=== PATIENT | female | born 1950 | race Caucasian/White ===

== ENCOUNTER → 2023-07-26 13:11 | Outpatient (REF) | payer MEDICARE, OTHER, SELFPAY ==
[2023-07-26 13:52] LABS: % Basophils 1.2 % (0-2); % Immature Granulocytes 0.2 % (0-0.5); % Lymphocytes 27.3 % (20.5-51.1); % Monocytes 9.6 % (1.7-9.3); % Neutrophils 58.7 % (42.2-75.2); Absolute Basophils 0.1 10^3/uL (0-0.2); Absolute Eosinophils 0.2 10^3/uL (0-0.7); Absolute Lymphocytes 1.6 10^3/uL (1.2-3.4); Absolute Monocytes 0.6 10^3/uL (0.1-0.6); Absolute Neutrophils 3.5 10^3/uL (1.4-6.5); Hematocrit 43.7 % (37.0-47.0); Hemoglobin 13.6 g/dL (12.0-16.0); Mean Corp Hgb Conc. 31.1 g/dL (33.0-37.0); Mean Corpuscular Hgb 30.2 pg (27.0-31.0); Mean Corpuscular Volume 96.9 fL (81.0-99.0); Mean Platelet Volume 9.9 fL (7.4-10.4); Nucleated Red Blood Cells % 0 %; Platelet Count 209 10^3/uL (130-400); Red Blood Cell Count 4.51 10^6/uL (4.20-5.40); Red Cell Dist. Width 14.1 % (11.5-14.5)
[2023-07-26 13:58] LABS: Blood Urea Nitrogen 19 mg/dl (7-17); Calcium 9.4 mg/dl (8.4-10.2); Carbon Dioxide 27 mmol/L (22-30); Chloride 105 mmol/L (98-107); Glucose 113 mg/dl (70-99); Potassium 4.2 mmol/L (3.5-5.1); Sodium 136 mmol/L (135-145); eGFR > 60.00
[2023-07-26 14:24] LABS: TSH 1.81 uIU/ml (0.47-4.68)
[2023-07-26 14:30] LABS: Glycohemoglobin (HgbA1c) 6.1 % (4.0-5.6)
== END ==
LOC: CLAB 13:11
PROVIDERS: ATTENDING PHYSICIAN Internal Medicine
DX: R53.81 Other malaise (principal); R53.83 Other fatigue; R73.03 Prediabetes
CPT/HCPCS: 36415; 80048; 83036; 84443; 85025

== ENCOUNTER → 2023-09-20 08:12 | Outpatient (REF) | payer MEDICARE, OTHER, SELFPAY ==
[2023-09-20 10:19] LABS: HDL Cholesterol 78 mg/dl; Iron 101 ug/dl (37-170); Total Cholesterol 148 mg/dl (50-199)
[2023-09-20 10:28] LABS: Percent Saturation 30 % (20-50); Total Iron Binding Capacity 336 ug/dl (265-497)
[2023-09-20 10:29] LABS: LDL Cholesterol, Calculated 43 mg/dl; Triglyceride 136 mg/dl (10-149); Very Low Density Lipoprotein 27 mg/dl (0-30)
[2023-09-20 10:41] LABS: Glycohemoglobin (HgbA1c) 6.1 % (4.0-5.6)
[2023-09-20 10:48] LABS: Ferritin 65.4 ng/ml (11.1-264.0)
[2023-09-20 11:02] LABS: Vitamin B12 952 pg/ml (239-931)
== END ==
LOC: REG 08:12
PROVIDERS: ATTENDING PHYSICIAN Physician Assistant
DX: R53.83 Other fatigue (principal); R73.01 Impaired fasting glucose; Z13.220 Encounter for screening for lipoid disorders; E66.09 Other obesity due to excess calories; Z68.32 Body mass index [BMI] 32.0-32.9, adult; R11.10 Vomiting, unspecified; E53.8 Deficiency of other specified B group vitamins
CPT/HCPCS: 36415; 80061; 82607; 82728; 83036; 83540; 83550

== ENCOUNTER → 2023-11-06 06:37 | Day surgery (SDC) | payer MEDICARE, OTHER, SELFPAY | LOC: GI 06:37 | PROVIDERS: ATTENDING PHYSICIAN Internal Medicine Gastroenterology | DX: K22.70 Barrett's esophagus without dysplasia (principal); K44.9 Diaphragmatic hernia without obstruction or gangrene; K22.89 Other specified disease of esophagus | CPT/HCPCS: 43239; 88305 ==

== ENCOUNTER → 2023-11-22 08:30 | Outpatient (REF) | payer MEDICARE, OTHER, SELFPAY ==
[2023-11-22 09:35] LABS: Urine Albumin Negative (Neg - Trace); Urine Bilirubin 1+ (Negative); Urine Character Clear (Clear); Urine Color Yellow; Urine Glucose Negative (Negative); Urine Ketone Negative (Negative); Urine Leukocyte 1+ (Negative); Urine Nitrite Negative (Negative); Urine Occult Blood Negative (Negative); Urine Urobilinogen Negative (Neg - 1+)
[2023-11-22 10:56] LABS: Urine Amorphous Seen; Urine Squamous Cell >30 /LPF (Few)
[2023-11-22 10:57] LABS: Urine Red Blood Cell 0-2 /HPF (0-2)
== END ==
LOC: REG 08:30
PROVIDERS: ATTENDING PHYSICIAN Physician Assistant
DX: R30.0 Dysuria (principal)
CPT/HCPCS: 81003; 81015; 87086

== ENCOUNTER 2023-12-18 12:49 | Emergency (ER) | payer MEDICARE, OTHER, SELFPAY ==
[2023-12-18 12:53] VITALS: BP 128/88
[2023-12-18 13:20] LABS: % Basophils 0.7 % (0-2); % Eosinophils 1.2 % (0-6); % Immature Granulocytes 0.4 % (0-0.5); % Lymphocytes 20.7 % (20.5-51.1); % Monocytes 10.5 % (1.7-9.3); % Neutrophils 66.5 % (42.2-75.2); Absolute Basophils 0.1 10^3/uL (0-0.2); Absolute Eosinophils 0.1 10^3/uL (0-0.7); Absolute Lymphocytes 1.4 10^3/uL (1.2-3.4); Absolute Monocytes 0.7 10^3/uL (0.1-0.6); Absolute Neutrophils 4.6 10^3/uL (1.4-6.5); Hematocrit 43.1 % (37.0-47.0); Hemoglobin 14.3 g/dL (12.0-16.0); Mean Corp Hgb Conc. 33.2 g/dL (33.0-37.0); Mean Corpuscular Hgb 30.9 pg (27.0-31.0); Mean Corpuscular Volume 93.1 fL (81.0-99.0); Mean Platelet Volume 8.9 fL (7.4-10.4); Nucleated Red Blood Cells % 0 %; Platelet Count 256 10^3/uL (130-400); Red Blood Cell Count 4.63 10^6/uL (4.20-5.40); Red Cell Dist. Width 14.6 % (11.5-14.5); White Blood Cell Count 6.9 10^3/uL (4.8-10.8)
[2023-12-18 13:35] LABS: ALT (SGPT) 26 U/L (0-35); AST (SGOT) 30 U/L (14-36); Albumin 4.7 g/dl (3.5-5.0); Alkaline Phosphatase 65 U/L (38-126); Blood Urea Nitrogen 20 mg/dl (7-17); Calcium 10.2 mg/dl (8.4-10.2); Carbon Dioxide 29 mmol/L (22-30); Chloride 101 mmol/L (98-107); Glucose 96 mg/dl (70-99); Lipase 104 U/L (23-300); Potassium 4.3 mmol/L (3.5-5.1); Sodium 137 mmol/L (135-145); Total Protein 7.1 g/dl (6.3-8.2); eGFR > 60.00
[2023-12-18] MEDS: OMNIPAQUE 50 ML PO (15:20)
--- NOTE | 2023-12-18 15:40 | ED.GENMED ---
History of Present Illness
General
Chief Complaint: Abdominal Pain
Source: patient
Exam Limitations: none
Time Seen by Provider: 12/18/23 14:49
Nursing documentation reviewed up to this point in time: agreed with
History of Present Illness
History of Present Illness:
73-year-old female with past medical history of previous diverticulitis previous stroke, anxiety depression presenting to the emergency department today with concerns of lower abdominal pain mainly to the right lower quadrant took amoxicillin over
the past 2 days when she presumed there was diverticulitis but has not had any improvement of symptoms. Did have a previous sigmoidectomy in the past. Denies any nausea vomiting fevers.
Past History
Past History
ED Past Medical History: CVA (TIA), GERD, Hypercholesterolemia and Other (Diverticulitis, DVT)
ED Past Surgical History: Appendectomy, Bowel resection and Other (Resection)
Social History
Tobacco: Non-smoker
Alcohol: Occasional (Wine)
Drug: None
Personal:
Living: with family
Employment: Not employed
Family History
Family History: Other (Spouse with similar less severe symptoms)
Review of Systems
Review of Systems
Allergies reviewed?: Yes
All Other Systems: ROS reviewed and negative except as documented in HPI and ROS
Phy Exam
Physical Exam
Physical Exam:
GENERAL: Alert , in no apparent distress
EYE: pupils equal and reactive
NECK: Supple, no significant adenopathy.
ENT: o/p clr, mmm.
CARDIAC: Regular rate and rhythm .
LUNGS: Clear breath sounds bilaterally, no acute respiratory distress, no wheezes/rales/rhonchi
ABDOMEN: Tender to palpation to the right lower quadrant otherwise soft benign abdomen
NEUROLOGICAL: Alert and oriented, no focal neuro deficits
SKIN: Warm and dry, skin intact.
MUSCULOSKELETAL: No edema, well perfused.
PSYCH: Normal and appropriate interaction.
Course
Orders/Labs/Results
Orders:
Orders
12/18/23 12:57
IV Insert/Care/Rem.- Treatment PRN
12/18/23 13:00
Complete Blood Count/With Diff Urgent
Comprehensive Metabolic Panel Urgent
Lipase Urgent
12/18/23 15:15
CT Abd/pel W Iv And Oral Contr Urgent
Comment:
Reason For Exam: rlq pain
0.9% Sodium Chloride 1000 ml [Nss] 1,000 ml IV BOLUS
Iohexol [Omnipaque] See Protocol PO NOW STA
12/18/23 15:46
Urinalysis Reflex To Culture Urgent
Date Specimen was Collected: 12/18/23
Time Specimen was Collected: 15:22
Abnormal Lab Results
12/18/23 12/18/23
13:00 15:46
RDW 14.6 H %
(11.5-14.5)
Absolute Monos (auto) 0.7 H 10^3/uL
(0.1-0.6)
Monocytes % 10.5 H %
(1.7-9.3)
BUN 20 H mg/dl
(7-17)
Urine Ketones Trace A
(Negative)
12/18/23 13:00
12/18/23 13:00
Vital Signs
Initial and Last Documented VS:
Initial Vital Signs
Temp Pulse Resp BP Pulse Ox
98.1 F 78 18 128/88 97
12/18/23 12:53 12/18/23 12:53 12/18/23 12:53 12/18/23 12:53 12/18/23 12:53
Last Documented Vital Signs
Temp Pulse Resp BP Pulse Ox
98.6 F 78 18 120/64 96
12/18/23 19:02 12/18/23 17:52 12/18/23 17:52 12/18/23 19:02 12/18/23 19:02
MDM/Problems Addressed
MDM/Problems Addressed:
73-year-old female presenting to the emergency department today with concerns of abdominal pain mainly to the right lower quadrant over the past few days. Feels similar to previous episodes of diverticulitis. Plan for CT scan for further
assessment. CT without emergent findings labs unremarkable patient vies for close outpatient follow-up and otherwise no emergent findings on workup here. Return precautions given.
*Critical Care Note
Total Time (30-74mins, 75-104mins- exclusive of procedures): Not Applicable
ED Attending Note
-
Portions of this chart may have been created with voice recognition software.� Occasional wrong word or��sound alike� substitutions may have occurred due to the inherent limitations of voice recognition software.
Discharge Plan
Departure
Patient Disposition: Home (Routine Discharge)
Date of Disposition: 12/18/23
Time of Disposition: 19:34
Patient with high blood pressure during this ER visit?: No
Condition: Good
Covid-19: Not Applicable
Discharge Problem:
Abdominal pain
Instructions: Abdominal Pain
Prescriptions:
No Action
cyanocobalamin (vitamin B-12) 100 MCG tablet
1,000 mcg PO DAILY
cholecalciferol (vitamin D3) 1,000 UNITS tablet
2,000 units PO DAILY
Probiotic (with Vitamin D3) 1 EACH tablet,chewable
1 ea PO DAILY
rosuvastatin 20 MG tablet
20 mg PO QPM Qty: 60 0RF
omeprazole 20 mg capsule,delayed release(DR/EC)
20 mg PO DAILY
clopidogrel 75 MG tablet
75 mg PO DAILY
amitriptyline 10 mg Tablet
10 mg PO HS Qty: 10 0RF
prednisone 10 mg tablet
30 mg PO DAILY Qty: 30 0RF
Rx Instructions:
30mg X2 days then 20mg X 3days then 10 mg
cefuroxime axetil 500 mg tablet
500 mg PO BID Qty: 9 0RF
cefdinir 300 mg capsule
300 mg PO BID 10 Days Qty: 20 0RF
Referrals:
Katarzyna Greenwood PA-C [Family Provider] -
Activity Restrictions/Additional Instructions:
You came to the emergency department today with concerns of abdominal pain. Here had a reassuring assessment. Please follow closely with the primary care doctor and GI for any ongoing symptoms. Return to the emergency department any worsening,
new or concerning symptoms.
Interventions
Interventions:
*Risk Screen - Suicide Last Done: 12/18/23 12:53
*General Assessment Last Done: 12/18/23 12:53
*Neglect/Abuse Screening Last Done: 12/18/23 12:53
ED- Fall Risk Assessment Last Done: 12/18/23 17:05
*ED COVID-19 Vaccine History Last Done: 12/18/23 17:05
QM-Nyfqpi-Izaueekkuf Assessment Last Done: 12/18/23 17:04
Discharge Date and Time
Print Language: CROATIAN
[2023-12-18] MEDS: NSS 1000 IV (15:49)
[2023-12-18 15:51] LABS: Urine Albumin Negative (Neg - Trace); Urine Bilirubin Negative (Negative); Urine Character Clear (Clear); Urine Color Yellow; Urine Glucose Negative (Negative); Urine Ketone Trace (Negative); Urine Leukocyte Negative (Negative); Urine Nitrite Negative (Negative); Urine Occult Blood Negative (Negative); Urine Specific Gravity 1.015 (<1.030); Urine Urobilinogen Negative (Neg - 1+)
[2023-12-18 17:52] VITALS: BP 122/74; BMI 30.2
[2023-12-18 19:02] VITALS: BP 120/64
== END 2023-12-18 20:05 | disposition home or self-care (01) ==
LOC: EMR 12:49
PROVIDERS: Physician Assistant; Student in an Organized Health Care Education/Training Program; EMERGENCY PHYSICIAN Student in an Organized Health Care Education/Training Program; FAMILY PHYSICIAN Physician Assistant
DX: R10.31 Right lower quadrant pain (principal); K57.92 Diverticulitis of intestine, part unspecified, without perforation or abscess without bleeding; K21.9 Gastro-esophageal reflux disease without esophagitis; F32.A Depression, unspecified; F41.9 Anxiety disorder, unspecified; I49.9 Cardiac arrhythmia, unspecified; E78.5 Hyperlipidemia, unspecified; I45.10 Unspecified right bundle-branch block; K22.70 Barrett's esophagus without dysplasia; M19.90 Unspecified osteoarthritis, unspecified site; Z98.0 Intestinal bypass and anastomosis status; Z86.718 Personal history of other venous thrombosis and embolism; Z86.73 Personal history of transient ischemic attack (TIA), and cerebral infarction without residual deficits; Z87.440 Personal history of urinary (tract) infections; Z88.2 Allergy status to sulfonamides; Z88.8 Allergy status to other drugs, medicaments and biological substances; Z88.1 Allergy status to other antibiotic agents; Z91.018 Allergy to other foods
CPT/HCPCS: 99285; 96360; 74177; 80053; 81003; 83690; 85025; Q9967

== ENCOUNTER → 2024-01-06 11:57 | Outpatient (REF) | payer MEDICARE, OTHER, SELFPAY | LOC: MRI 3T 11:57 | PROVIDERS: ATTENDING PHYSICIAN Pain Medicine Interventional Pain Medicine; FAMILY PHYSICIAN Physician Assistant | DX: M54.16 Radiculopathy, lumbar region (principal) | CPT/HCPCS: 72148 ==

== ENCOUNTER → 2024-02-05 10:30 | Outpatient (REF) | payer MEDICARE, OTHER, SELFPAY | LOC: WDC 10:30 | PROVIDERS: ATTENDING PHYSICIAN Physician Assistant | DX: Z12.31 Encounter for screening mammogram for malignant neoplasm of breast (principal) | CPT/HCPCS: 77063; 77067 ==

== ENCOUNTER → 2024-03-09 09:05 | Outpatient (REF) | payer MEDICARE, OTHER, SELFPAY | LOC: REG 09:05 | PROVIDERS: ATTENDING PHYSICIAN Urology; FAMILY PHYSICIAN Physician Assistant | DX: N30.10 Interstitial cystitis (chronic) without hematuria (principal) | CPT/HCPCS: 87077; 87086; 87186 ==

== ENCOUNTER → 2024-03-25 14:38 | Outpatient (REF) | payer MEDICARE, OTHER, SELFPAY ==
[2024-03-25 15:35] LABS: Urine Albumin 2+ (Neg - Trace); Urine Bilirubin Negative (Negative); Urine Character Very Cloudy (Clear); Urine Color Yellow; Urine Glucose Negative (Negative); Urine Ketone Negative (Negative); Urine Leukocyte 2+ (Negative); Urine Nitrite Positive (Negative); Urine Occult Blood 3+ (Negative); Urine Specific Gravity 1.015 (<1.030); Urine Urobilinogen Negative (Neg - 1+)
[2024-03-25 15:48] LABS: Urine Bacteria Many (Negative); Urine Red Blood Cell 0-2 /HPF (0-2); Urine White Cell 30-40 /HPF (0-5)
== END ==
LOC: REG 14:38
PROVIDERS: ATTENDING PHYSICIAN Urology; FAMILY PHYSICIAN Physician Assistant
DX: N39.0 Urinary tract infection, site not specified (principal)
CPT/HCPCS: 81003; 81015; 87077; 87086; 87186

== ENCOUNTER 2024-03-25 20:14 | Emergency (ER) | payer MEDICARE, OTHER, SELFPAY ==
[2024-03-25 20:21] VITALS: BP 164/105
[2024-03-25 20:42] LABS: % Basophils 0.6 % (0-2); % Immature Granulocytes 0.3 % (0-0.5); % Lymphocytes 19.3 % (20.5-51.1); % Monocytes 8.1 % (1.7-9.3); % Neutrophils 70.7 % (42.2-75.2); Absolute Basophils 0.1 10^3/uL (0-0.2); Absolute Eosinophils 0.1 10^3/uL (0-0.7); Absolute Monocytes 0.9 10^3/uL (0.1-0.6); Absolute Neutrophils 7.5 10^3/uL (1.4-6.5); Hematocrit 42.8 % (37.0-47.0); Mean Corp Hgb Conc. 32.7 g/dL (33.0-37.0); Mean Corpuscular Hgb 32.1 pg (27.0-31.0); Mean Corpuscular Volume 98.2 fL (81.0-99.0); Mean Platelet Volume 9.2 fL (7.4-10.4); Nucleated Red Blood Cells % 0 %; Platelet Count 223 10^3/uL (130-400); Red Blood Cell Count 4.36 10^6/uL (4.20-5.40); Red Cell Dist. Width 14.2 % (11.5-14.5); White Blood Cell Count 10.6 10^3/uL (4.8-10.8)
[2024-03-25 20:58] LABS: ALT (SGPT) 40 U/L (0-35); AST (SGOT) 33 U/L (14-36); Albumin 4.5 g/dl (3.5-5.0); Alkaline Phosphatase 44 U/L (38-126); Blood Urea Nitrogen 20 mg/dl (7-17); Calcium 9.2 mg/dl (8.4-10.2); Carbon Dioxide 28 mmol/L (22-30); Chloride 98 mmol/L (98-107); Glucose 125 mg/dl (70-99); Sodium 136 mmol/L (135-145); Total Bilirubin 0.5 mg/dl (0.2-1.3); Total Protein 6.8 g/dl (6.3-8.2); eGFR > 60.00
[2024-03-25] MEDS: TYLENOL 650 MG PO (21:56)
[2024-03-25] MEDS: NSS 1000 IV (21:56)
--- NOTE | 2024-03-25 22:03 | ED.GENMED ---
Addendum entered and electronically signed by Jerry Jackson DO 03/25/24 23:16:
Update Long conversation with patient reviewed her allergies and intolerances, prior culture noted given ceftriaxone here will discharge with Augmentin and Pyridium
Original Note:
History of Present Illness
General
Chief Complaint: Urinary Symptoms
Source: patient, records and spouse
Exam Limitations: none
Time Seen by Provider: 03/25/24 21:06
Nursing documentation reviewed up to this point in time: agreed with
History of Present Illness
History of Present Illness:
73-year-old female history of interstitial cystitis followed by Dr. Oneill urogynecologist presents with fatigue, malaise feeling cold, with urinary frequency and incontinence, finished course of amoxicillin and then Cipro for UTI symptoms started
about 2 to 3 weeks ago had been in [place], states she never really recovered from her UTI, no vomiting no flank pain, she give a urine and outpatient today in the [facility] cultures pending, no stuffy nose no cough, she took her blood pressure
and it was elevated temperature was low so she came to the hospital
Past History
Past History
ED Past Medical History: CVA (TIA), GERD, Hypercholesterolemia and Other (Diverticulitis, DVT)
ED Past Surgical History: Appendectomy, Bowel resection and Other (Resection)
Social History
Tobacco: Non-smoker
Alcohol: Occasional (Wine)
Drug: None
Personal:
Living: with family
Employment: Not employed
Family History
Family History: Other (Spouse with similar less severe symptoms)
Review of Systems
Review of Systems
All Other Systems: Not applicable
Constitutional: Reports fatigue; Denies fever
EENT: Reports no symptoms
Cardiac: Reports no symptoms
ABD/GI: Reports no symptoms
: Reports dysuria, frequency, incontinence and urgency; Denies flank pain
Musculoskeletal: Reports no symptoms
Skin: Reports no symptoms
Neurological: Reports weakness
Endocrine: Reports no symptoms
Hematologic/Lymphatic: Reports no symptoms
Phy Exam
Physical Exam
Physical Exam:
Physical Exam
General: no apparent distress, not acutely ill
Neck: No jaundice
Heart: s1/s2 regular rate and rhythm, no murmur. equal radial pulses.
Lungs: no acute respiratory distress. clear bilaterally
Abdomen: Soft nontender no CVA tender
Neuro: alert and oriented. no focal neurological deficits
Skin: no rash
Psychiatric: well kept. interactive and cooperative
Extremities: no edema.
Course
Orders/Labs/Results
Orders:
Orders
03/25/24 20:29
Complete Blood Count/With Diff Urgent
Comprehensive Metabolic Panel Urgent
03/25/24 21:18
CT Abd/pel Without Iv Or Oral Urgent
Comment:
Reason For Exam: recureent uti
03/25/24 21:19
0.9% Sodium Chloride 1000 ml [Nss] 1,000 ml IV BOLUS
03/25/24 21:48
Morphine Sulfate 2 mg IV NOW STA
03/25/24 21:49
Acetaminophen [Tylenol] 650 mg PO NOW STA
03/25/24 22:02
CefTRIAXone [Rocephin] 1,000 mg IV NOW STA
Abnormal Lab Results
03/25/24
20:29
MCH 32.1 H pg
(27.0-31.0)
MCHC 32.7 L g/dL
(33.0-37.0)
Absolute Neuts (auto) 7.5 H 10^3/uL
(1.4-6.5)
Absolute Monos (auto) 0.9 H 10^3/uL
(0.1-0.6)
Lymphocytes % 19.3 L %
(20.5-51.1)
BUN 20 H mg/dl
(7-17)
Glucose 125 H mg/dl
(70-99)
ALT 40 H U/L
(0-35)
03/25/24 20:29
03/25/24 20:29
Vital Signs
Initial and Last Documented VS:
Initial Vital Signs
Temp Pulse Resp BP Pulse Ox
97.8 F 77 19 164/105 98
03/25/24 20:21 03/25/24 20:21 03/25/24 20:21 03/25/24 20:21 03/25/24 20:21
Last Documented Vital Signs
Temp Pulse Resp BP Pulse Ox
97.8 F 77 19 164/105 98
03/25/24 20:21 03/25/24 20:21 03/25/24 20:21 03/25/24 20:21 03/25/24 20:21
MDM/Problems Addressed
Differential Diagnosis Includes:
UTI pyelonephritis viral syndrome
MDM/Problems Addressed:
Fatigue urinary frequent
Chronic conditions affecting care:
Interstitial cystitis
Acute Exacerbation and/or Progression of Chronic Illness:
Interstitial cystitis
*Radiology
Radiology exam reviewed: radiology read reviewed
*Pulse Oximetry
Patient hypoxic: no
*EKG
Interpreted by ED Provider?: NA
*Architecture Analyst Interpretation
Rate: normal
Interpretation: normal
Heart Rate: 78
Rhythm: sinus
*Critical Care Note
Total Time (30-74mins, 75-104mins- exclusive of procedures): Not Applicable
Data Reviewed
Review of Other/Old Records Reveals: Labs
Source: patient
Update Note
Update Note:
Update patient with vague symptoms outpatient urinalysis noted culture pending to take a dose of Azo, vital signs are stable labs are noted will check CT to rule out obstruction, started on fluids analgesics and antibiotics is unclear why she is not
clearing her urinary tract infection prior most recent urine culture noted
11 PM labs are noted CT report noted
ED Attending Note
-
Portions of this chart may have been created with voice recognition software.� Occasional wrong word or��sound alike� substitutions may have occurred due to the inherent limitations of voice recognition software.
Discharge Plan
Departure
Prescriptions:
No Action
cyanocobalamin (vitamin B-12) 100 MCG tablet
1,000 mcg PO DAILY
cholecalciferol (vitamin D3) 1,000 UNITS tablet
2,000 units PO DAILY
Probiotic (with Vitamin D3) 1 EACH tablet,chewable
1 ea PO DAILY
rosuvastatin 20 MG tablet
20 mg PO QPM Qty: 60 0RF
omeprazole 20 mg capsule,delayed release(DR/EC)
20 mg PO DAILY
clopidogrel 75 MG tablet
75 mg PO DAILY
amitriptyline 10 mg Tablet
10 mg PO HS Qty: 10 0RF
prednisone 10 mg tablet
30 mg PO DAILY Qty: 30 0RF
Rx Instructions:
30mg X2 days then 20mg X 3days then 10 mg
cefuroxime axetil 500 mg tablet
500 mg PO BID Qty: 9 0RF
cefdinir 300 mg capsule
300 mg PO BID 10 Days Qty: 20 0RF
Referrals:
UNKNOWN - PT DOES,NOT KNOW [Unknown Provider] -
Interventions
Interventions:
*Risk Screen - Suicide Last Done: 03/25/24 20:23
*General Assessment Last Done: 03/25/24 20:23
*Neglect/Abuse Screening Last Done: 03/25/24 20:23
*ED COVID-19 Vaccine History Last Done: 03/25/24 20:22
Discharge Date and Time
Print Language: [place]AST [place]
[2024-03-25] MEDS: ROCEPHIN 1000 MG IV (23:06)
[2024-03-25 23:14] VITALS: BP 121/75
--- NOTE | 2024-03-25 23:15 | ED.GENMED ---
History of Present Illness
General
Chief Complaint: Urinary Symptoms
Time Seen by Provider: 03/25/24 21:06
Past History
Past History
ED Past Medical History: CVA (TIA), GERD, Hypercholesterolemia and Other (Diverticulitis, DVT)
ED Past Surgical History: Appendectomy, Bowel resection and Other (Resection)
Social History
Tobacco: Non-smoker
Alcohol: Occasional (Wine)
Drug: None
Personal:
Living: with family
Employment: Not employed
Family History
Family History: Other (Spouse with similar less severe symptoms)
Course
Orders/Labs/Results
Orders:
Orders
03/25/24 20:29
Complete Blood Count/With Diff Urgent
Comprehensive Metabolic Panel Urgent
03/25/24 21:18
CT Abd/pel Without Iv Or Oral Urgent
Comment:
Reason For Exam: recureent uti
03/25/24 21:19
0.9% Sodium Chloride 1000 ml [Nss] 1,000 ml IV BOLUS
03/25/24 21:48
Morphine Sulfate 2 mg IV NOW STA
03/25/24 21:49
Acetaminophen [Tylenol] 650 mg PO NOW STA
03/25/24 22:02
CefTRIAXone [Rocephin] 1,000 mg IV NOW STA
Abnormal Lab Results
03/25/24
20:29
MCH 32.1 H pg
(27.0-31.0)
MCHC 32.7 L g/dL
(33.0-37.0)
Absolute Neuts (auto) 7.5 H 10^3/uL
(1.4-6.5)
Absolute Monos (auto) 0.9 H 10^3/uL
(0.1-0.6)
Lymphocytes % 19.3 L %
(20.5-51.1)
BUN 20 H mg/dl
(7-17)
Glucose 125 H mg/dl
(70-99)
ALT 40 H U/L
(0-35)
03/25/24 20:29
03/25/24 20:29
Vital Signs
Initial and Last Documented VS:
Initial Vital Signs
Temp Pulse Resp BP Pulse Ox
97.8 F 77 19 164/105 98
03/25/24 20:21 03/25/24 20:21 03/25/24 20:21 03/25/24 20:21 03/25/24 20:21
Last Documented Vital Signs
Temp Pulse Resp BP Pulse Ox
97.8 F 77 19 164/105 98
03/25/24 20:21 03/25/24 20:21 03/25/24 20:21 03/25/24 20:21 03/25/24 20:21
Update Note
Update Note:
Update
ED Attending Note
-
Portions of this chart may have been created with voice recognition software.� Occasional wrong word or��sound alike� substitutions may have occurred due to the inherent limitations of voice recognition software.
Discharge Plan
Departure
Prescriptions:
No Action
cyanocobalamin (vitamin B-12) 100 MCG tablet
1,000 mcg PO DAILY
cholecalciferol (vitamin D3) 1,000 UNITS tablet
2,000 units PO DAILY
Probiotic (with Vitamin D3) 1 EACH tablet,chewable
1 ea PO DAILY
rosuvastatin 20 MG tablet
20 mg PO QPM Qty: 60 0RF
omeprazole 20 mg capsule,delayed release(DR/EC)
20 mg PO DAILY
clopidogrel 75 MG tablet
75 mg PO DAILY
amitriptyline 10 mg Tablet
10 mg PO HS Qty: 10 0RF
prednisone 10 mg tablet
30 mg PO DAILY Qty: 30 0RF
Rx Instructions:
30mg X2 days then 20mg X 3days then 10 mg
cefuroxime axetil 500 mg tablet
500 mg PO BID Qty: 9 0RF
cefdinir 300 mg capsule
300 mg PO BID 10 Days Qty: 20 0RF
Referrals:
UNKNOWN - PT DOES,NOT KNOW [Unknown Provider] -
Interventions
Interventions:
*Risk Screen - Suicide Last Done: 03/25/24 20:23
*General Assessment Last Done: 03/25/24 20:23
*Neglect/Abuse Screening Last Done: 03/25/24 20:23
*ED COVID-19 Vaccine History Last Done: 03/25/24 20:22
Discharge Date and Time
Print Language: IRANIAN
[2024-03-25] MEDS: Pyridium 200 MG PO (23:43)
== END 2024-03-26 00:09 | disposition home or self-care (01) ==
LOC: EMR 20:14
PROVIDERS: Emergency Medicine; EMERGENCY PHYSICIAN Emergency Medicine; FAMILY PHYSICIAN Physician Assistant
DX: N30.10 Interstitial cystitis (chronic) without hematuria (principal); E78.00 Pure hypercholesterolemia, unspecified; K21.9 Gastro-esophageal reflux disease without esophagitis; Z86.718 Personal history of other venous thrombosis and embolism; Z86.73 Personal history of transient ischemic attack (TIA), and cerebral infarction without residual deficits; Z90.49 Acquired absence of other specified parts of digestive tract
CPT/HCPCS: 96374; 96375; 96361; 99284; 74176; 80053; 81003; 81015; 85025; 87086

== ENCOUNTER → 2024-05-14 11:27 | Outpatient (REF) | payer MEDICARE, OTHER, SELFPAY ==
[2024-05-14 17:29] LABS: % Basophils 0.8 % (0-2); % Immature Granulocytes 0.3 % (0-0.5); % Lymphocytes 22.3 % (20.5-51.1); % Monocytes 10.9 % (1.7-9.3); % Neutrophils 63.7 % (42.2-75.2); Absolute Basophils 0.1 10^3/uL (0-0.2); Absolute Eosinophils 0.2 10^3/uL (0-0.7); Absolute Lymphocytes 1.7 10^3/uL (1.2-3.4); Absolute Monocytes 0.8 10^3/uL (0.1-0.6); Absolute Neutrophils 4.8 10^3/uL (1.4-6.5); Hematocrit 45.3 % (37.0-47.0); Hemoglobin 14.4 g/dL (12.0-16.0); Mean Corp Hgb Conc. 31.8 g/dL (33.0-37.0); Mean Corpuscular Volume 97.4 fL (81.0-99.0); Mean Platelet Volume 9.6 fL (7.4-10.4); Nucleated Red Blood Cells % 0 %; Platelet Count 235 10^3/uL (130-400); Red Blood Cell Count 4.65 10^6/uL (4.20-5.40); Red Cell Dist. Width 14.1 % (11.5-14.5); White Blood Cell Count 7.5 10^3/uL (4.8-10.8)
[2024-05-14 17:35] LABS: Urine Albumin Trace (Neg - Trace); Urine Bilirubin Negative (Negative); Urine Character Clear (Clear); Urine Color Yellow; Urine Glucose Negative (Negative); Urine Ketone Negative (Negative); Urine Leukocyte 2+ (Negative); Urine Nitrite Negative (Negative); Urine Occult Blood Trace (Negative); Urine Specific Gravity 1.005 (<1.030); Urine Urobilinogen Negative (Neg - 1+)
[2024-05-14 17:45] LABS: ALT (SGPT) 24 U/L (0-35); AST (SGOT) 24 U/L (14-36); Albumin 4.7 g/dl (3.5-5.0); Alkaline Phosphatase 72 U/L (38-126); Blood Urea Nitrogen 18 mg/dl (7-17); Calcium 10.3 mg/dl (8.4-10.2); Carbon Dioxide 30 mmol/L (22-30); Chloride 100 mmol/L (98-107); Glucose 100 mg/dl (70-99); Potassium 4.6 mmol/L (3.5-5.1); Sodium 137 mmol/L (135-145); Total Bilirubin 0.9 mg/dl (0.2-1.3); Total Protein 7.3 g/dl (6.3-8.2); eGFR > 60.00
[2024-05-14 17:46] LABS: Amylase 50 U/L (30-110); Lipase 98 U/L (23-300); Urine Bacteria Many (Negative); Urine Red Blood Cell 0-2 /HPF (0-2); Urine Squamous Cell 16-20 /LPF (Few); Urine White Cell 50-60 /HPF (0-5)
== END ==
LOC: CLAB 11:27
PROVIDERS: ATTENDING PHYSICIAN Physician Assistant
DX: R30.0 Dysuria (principal); R68.89 Other general symptoms and signs; R10.9 Unspecified abdominal pain; R10.33 Periumbilical pain
CPT/HCPCS: 36415; 80053; 81003; 81015; 82150; 83690; 85025; 87077; 87086; 87186

== ENCOUNTER → 2024-06-10 16:34 | Outpatient (REF) | payer MEDICARE, OTHER, SELFPAY ==
[2024-06-10 17:34] LABS: Urine Albumin 2+ (Neg - Trace); Urine Bilirubin Negative (Negative); Urine Character Clear (Clear); Urine Color Yellow; Urine Glucose Negative (Negative); Urine Ketone Negative (Negative); Urine Leukocyte 3+ (Negative); Urine Nitrite Positive (Negative); Urine Occult Blood 2+ (Negative); Urine Urobilinogen Negative (Neg - 1+)
[2024-06-10 17:40] LABS: Urine Bacteria Many (Negative)
[2024-06-10 17:41] LABS: Urine White Cell >100 /HPF (0-5)
== END ==
LOC: REG 16:34
PROVIDERS: ATTENDING PHYSICIAN Nurse Practitioner; FAMILY PHYSICIAN Physician Assistant
DX: N39.0 Urinary tract infection, site not specified (principal)
CPT/HCPCS: 81003; 81015; 87077; 87086; 87186

== ENCOUNTER 2024-06-11 16:07 | Emergency (ER) | payer MEDICARE, OTHER, SELFPAY ==
[2024-06-11 16:09] VITALS: BP 169/92
[2024-06-11 16:46] LABS: % Basophils 0.4 % (0-2); % Eosinophils 1.3 % (0-6); % Immature Granulocytes 0.3 % (0-0.5); % Monocytes 5.3 % (1.7-9.3); % Neutrophils 77.7 % (42.2-75.2); Absolute Eosinophils 0.1 10^3/uL (0-0.7); Absolute Lymphocytes 1.2 10^3/uL (1.2-3.4); Absolute Monocytes 0.4 10^3/uL (0.1-0.6); Absolute Neutrophils 6.2 10^3/uL (1.4-6.5); Hematocrit 42.2 % (37.0-47.0); Hemoglobin 13.9 g/dL (12.0-16.0); Mean Corp Hgb Conc. 32.9 g/dL (33.0-37.0); Mean Corpuscular Hgb 31.7 pg (27.0-31.0); Mean Corpuscular Volume 96.3 fL (81.0-99.0); Mean Platelet Volume 9.3 fL (7.4-10.4); Nucleated Red Blood Cells % 0 %; Platelet Count 230 10^3/uL (130-400); Red Blood Cell Count 4.38 10^6/uL (4.20-5.40); Red Cell Dist. Width 13.5 % (11.5-14.5); White Blood Cell Count 7.9 10^3/uL (4.8-10.8)
[2024-06-11 17:01] LABS: ALT (SGPT) 23 U/L (0-35); AST (SGOT) 26 U/L (14-36); Albumin 4.8 g/dl (3.5-5.0); Alkaline Phosphatase 60 U/L (38-126); Blood Urea Nitrogen 24 mg/dl (7-17); Calcium 9.9 mg/dl (8.4-10.2); Carbon Dioxide 29 mmol/L (22-30); Chloride 101 mmol/L (98-107); Glucose 103 mg/dl (70-99); Potassium 3.8 mmol/L (3.5-5.1); Sodium 139 mmol/L (135-145); Total Bilirubin 0.8 mg/dl (0.2-1.3); eGFR > 60.00
[2024-06-11 17:03] LABS: Creatine Phosphokinase 114 U/L (30-135)
[2024-06-11] MEDS: BENADRYL 25 MG IV (17:49)
[2024-06-11] MEDS: NSS 1000 IV (17:49)
--- NOTE | 2024-06-11 18:33 | ED.GENMED ---
History of Present Illness
General
Chief Complaint: Allergic Reaction
Source: patient
Exam Limitations: none
Time Seen by Provider: 06/11/24 16:56
History of Present Illness
History of Present Illness:
73-year-old female presents with diffuse body aches after taking a dose of Macrobid. She believes she has had an allergic reaction to this medicine in the past and notes similar response this time. She is being treated for UTI. No throat swelling
or difficulty breathing. No rash. No chest pain or shortness of breath
Past History
Past History
ED Past Medical History: CVA (TIA), GERD, Hypercholesterolemia and Other (Diverticulitis, DVT)
ED Past Surgical History: Appendectomy, Bowel resection and Other (Resection)
Social History
Tobacco: Non-smoker
Alcohol: Occasional (Wine)
Drug: None
Personal:
Living: with family
Employment: Not employed
Family History
Family History: Other (Spouse with similar less severe symptoms)
Phy Exam
Physical Exam
Physical Exam:
General: Well-appearing female nontoxic no acute respiratory distress HEENT: Normocephalic atraumatic
Posterior pharynx is patent no stridor no adenopathy
Heart: Regular rate and rhythm no murmurs
Lungs: Clear no wheeze
Course
Orders/Labs/Results
Orders:
Orders
06/11/24 16:24
Complete Blood Count/With Diff Urgent
Comprehensive Metabolic Panel Urgent
Creatine [Creatine Phosphokinase] Urgent
06/11/24 17:34
0.9% Sodium Chloride 1000 ml [Nss] 1,000 ml IV BOLUS
Diphenhydramine [Benadryl] 25 mg IV NOW STA
Abnormal Lab Results
06/11/24
16:24
MCH 31.7 H pg
(27.0-31.0)
MCHC 32.9 L g/dL
(33.0-37.0)
Neutrophils % 77.7 H %
(42.2-75.2)
Lymphocytes % 15.0 L %
(20.5-51.1)
BUN 24 H mg/dl
(7-17)
Glucose 103 H mg/dl
(70-99)
06/11/24 16:24
06/11/24 16:24
Vital Signs
Initial and Last Documented VS:
Initial Vital Signs
Temp Pulse Resp BP Pulse Ox
98.2 F 98 20 169/92 98
06/11/24 16:09 06/11/24 16:09 06/11/24 16:09 06/11/24 16:09 06/11/24 16:09
Last Documented Vital Signs
Temp Pulse Resp BP Pulse Ox
98.2 F 98 20 169/92 98
06/11/24 16:09 06/11/24 16:09 06/11/24 16:09 06/11/24 16:09 06/11/24 18:10
MDM/Problems Addressed
Differential Diagnosis Includes:
Myalgias shortly dorsalis after starting Macrobid for UTI. She has had allergic reaction to Macrobid in the past. No respiratory distress. Labs reviewed
*Critical Care Note
Total Time (30-74mins, 75-104mins- exclusive of procedures): Not Applicable
ED Attending Note
-
Portions of this chart may have been created with voice recognition software.� Occasional wrong word or��sound alike� substitutions may have occurred due to the inherent limitations of voice recognition software.
Discharge Plan
Departure
Patient Disposition: Home (Routine Discharge)
Date of Disposition: 06/11/24
Time of Disposition: 18:35
Patient with high blood pressure during this ER visit?: No
Discharge Problem:
Allergic reaction
Instructions: Adverse Drug Reactions, Adult (DC)
Prescriptions:
New
cefdinir 300 mg capsule
300 mg PO BID Qty: 14 0RF
No Action
cyanocobalamin (vitamin B-12) 100 MCG tablet
1,000 mcg PO DAILY
cholecalciferol (vitamin D3) 1,000 UNITS tablet
2,000 units PO DAILY
Probiotic (with Vitamin D3) 1 EACH tablet,chewable
1 ea PO DAILY
rosuvastatin 20 MG tablet
20 mg PO QPM Qty: 60 0RF
omeprazole 20 mg capsule,delayed release(DR/EC)
20 mg PO DAILY
clopidogrel 75 MG tablet
75 mg PO DAILY
amitriptyline 10 mg Tablet
10 mg PO HS Qty: 10 0RF
prednisone 10 mg tablet
30 mg PO DAILY Qty: 30 0RF
Rx Instructions:
30mg X2 days then 20mg X 3days then 10 mg
cefuroxime axetil 500 mg tablet
500 mg PO BID Qty: 9 0RF
cefdinir 300 mg capsule
300 mg PO BID 10 Days Qty: 20 0RF
amoxicillin-pot clavulanate 875-125 mg tablet
1 tab PO Q12H Qty: 14 0RF
phenazopyridine [Pyridium] 200 mg tablet
200 mg PO TID PRN (Reason: Pain) Qty: 6 0RF
Referrals:
Katarzyna Greenwood PA-C [Family Provider] -
Activity Restrictions/Additional Instructions:
Take antibiotics as directed. Return here if worse otherwise follow-up with your doctor. Stop taking the macrobid.
Interventions
Interventions:
*Risk Screen - Suicide Last Done: 06/11/24 16:09
*General Assessment Last Done: 06/11/24 16:09
*Neglect/Abuse Screening Last Done: 06/11/24 16:09
ED- Cardiac Assessment Last Done: 06/11/24 18:10
ED-Female Genitourinary Assessment Last Done: 06/11/24 18:10
ED- Pulmonary Assessment Last Done: 06/11/24 18:10
ED-Skin Assessment Last Done: 06/11/24 18:10
Discharge Date and Time
Print Language: NIGERIEN
[2024-06-11 19:02] VITALS: BP 150/96
== END 2024-06-11 19:04 | disposition home or self-care (01) ==
LOC: EMR 16:07
PROVIDERS: Physician Assistant; EMERGENCY PHYSICIAN Student in an Organized Health Care Education/Training Program; FAMILY PHYSICIAN Physician Assistant
DX: M62.81 Muscle weakness (generalized) (principal); T37.8X5A Adverse effect of other specified systemic anti-infectives and antiparasitics, initial encounter
CPT/HCPCS: 99284; 96374; 96361; 80053; 82550; 85025

== ENCOUNTER → 2024-10-29 12:23 | Outpatient (REF) | payer MEDICARE, OTHER, SELFPAY ==
[2024-10-29 14:09] LABS: Erythrocyte Sed Rate 3 mm/hour (0-20)
[2024-10-29 14:17] LABS: C-Reactive Protein < 5.00 mg/L (0.0-10.00)
== END ==
LOC: REG 12:23
PROVIDERS: ATTENDING PHYSICIAN Ophthalmology; FAMILY PHYSICIAN Physician Assistant
DX: R51.9 Headache, unspecified (principal)
CPT/HCPCS: 36415; 85652; 86140

== ENCOUNTER → 2025-01-07 07:56 | Outpatient (REF) | payer MEDICARE, OTHER, SELFPAY ==
[2025-01-07 09:32] LABS: Hematocrit 44.5 % (37.0-47.0); Hemoglobin 14.1 g/dL (12.0-16.0); Mean Corp Hgb Conc. 31.7 g/dL (33.0-37.0); Mean Corpuscular Volume 94.5 fL (81.0-99.0); Nucleated Red Blood Cells % 0 %; Platelet Count 224 10^3/uL (130-400); Red Cell Dist. Width 14.1 % (11.5-14.5)
[2025-01-07 10:07] LABS: ALT (SGPT) 20 U/L (0-35); AST (SGOT) 21 U/L (14-36); Albumin 4.5 g/dl (3.5-5.0); Alkaline Phosphatase 58 U/L (38-126); Blood Urea Nitrogen 16 mg/dl (7-17); Calcium 9.8 mg/dl (8.4-10.2); Carbon Dioxide 32 mmol/L (22-30); Chloride 105 mmol/L (98-107); Glucose 107 mg/dl (70-99); HDL Cholesterol 81 mg/dl; LDL Cholesterol, Calculated 60 mg/dl; Potassium 4.6 mmol/L (3.5-5.1); Sodium 141 mmol/L (135-145); Total Protein 6.8 g/dl (6.3-8.2); Very Low Density Lipoprotein 27 mg/dl (0-30); eGFR > 60.00
[2025-01-07 10:20] LABS: Vitamin D, 25-OH*** 29.4 ng/mL (30-80)
[2025-01-07 10:53] LABS: Vitamin B12 871 pg/ml (239-931)
== END ==
LOC: REG 07:56
PROVIDERS: ATTENDING PHYSICIAN Physician Assistant
DX: E78.2 Mixed hyperlipidemia (principal); N30.10 Interstitial cystitis (chronic) without hematuria; I35.1 Nonrheumatic aortic (valve) insufficiency; Z86.73 Personal history of transient ischemic attack (TIA), and cerebral infarction without residual deficits; E53.8 Deficiency of other specified B group vitamins; E66.9 Obesity, unspecified; R42 Dizziness and giddiness; E55.9 Vitamin D deficiency, unspecified
CPT/HCPCS: 36415; 80053; 80061; 82306; 82607; 84443; 85025

== ENCOUNTER → 2025-02-05 11:45 | Outpatient (REF) | payer MEDICARE, OTHER, SELFPAY | LOC: WDC 11:45 | PROVIDERS: ATTENDING PHYSICIAN Physician Assistant | DX: Z12.31 Encounter for screening mammogram for malignant neoplasm of breast (principal) | CPT/HCPCS: 77063; 77067 ==

== ENCOUNTER 2025-04-14 21:07 | Emergency (ER) | payer MEDICARE, OTHER, SELFPAY ==
[2025-04-14 21:15] VITALS: BP 114/89
--- NOTE | 2025-04-14 22:02 | ED.MUSCINJ ---
HPI-Injury
General
Chief Complaint: Musculo-Skeletal Complaint
Source: patient
Exam Limitations: none
Time Seen by Provider: 04/14/25 21:55
Nursing documentation reviewed up to this point in time: agreed with
History of Present Illness-Injury
Is this injury a work related problem?: No
Is pt an associate of [facility]/[place]?: No
Initial Injury comments:
Patient to the emergency department for evaluation of left wrist pain. Patient states she was using her hands to push herself up from a seated position and her wrist gave out. Incident occurred 2 days ago. She reports volar wrist pain since.
There is no swelling or bruising.
Past History
Past History
ED Past Medical History: CVA (TIA), GERD, Hypercholesterolemia and Other (Diverticulitis, DVT)
ED Past Surgical History: Appendectomy, Bowel resection and Other (Resection)
Social History
Tobacco: Non-smoker
Alcohol: Occasional (Wine)
Drug: None
Personal:
Living: with family
Employment: Not employed
Family History
Family History: Other (Spouse with similar less severe symptoms)
Review of Systems
Review of Systems
Allergies reviewed?: Yes
All Other Systems: ROS reviewed and negative except as documented in HPI and ROS
Constitutional: Reports no symptoms
Musculoskeletal: Reports joint pain (Pain to left wrist)
Skin: Reports no symptoms
Neurological: Reports no symptoms
Psychiatric: Reports no symptoms
Musculoskeletal Injury Exam
Musculoskeletal Injury Exam
Left Wrist:
Pain with Movement?: Mild
Tender to palpation?: Mild
Soft tissue swelling?: None
External deformity and angulation?: None
Joint effusion?: None
Contusion?: None
Strain- Sprain- Tear (Connective tissue injury)?: Moderate
Crepitus with movement?: No
Joint instability?: No
Malalignment/deformity?: No
Range of motion: Full
Distal skin color and temperature: normal-warm & good color
Capillary Refill: normal
Normal distal neurovascular exam?: Yes
Peripheral Pulses: radial (left): 3+
Phy Exam
General Physical Exam
General Presentation: well appearing and no apparent distress
General age: appears stated age
General Skin: warm and dry
General Habitus: normal
General Mental: alert
Musculoskeletal Exam
Musculoskeletal Exam: full ROM and neuro vasc intact
Skin Exam
Skin Exam: normal color, warm/dry and no rash
Psychiatric Exam
Psychiatric Exam: normal mood/affect
Injury Course
Orders/Labs/Results
Orders:
Orders
04/14/25 21:16
Wrist, Left 3 Views CR [CR Wrist - Left Min 3 Views] Urgent
Comment:
Reason For Exam: injury
*Radiology
Radiology exam reviewed: radiology read reviewed
*Pulse Oximetry
SaO2: 95
Oxygen Mode of Delivery: Room air
Patient hypoxic: no
*Critical Care Note
Total Time (30-74mins, 75-104mins- exclusive of procedures): Not Applicable
Update Note
Update Note:
Patient to emergency department for evaluation of left wrist pain. She states her wrist gave out while using her hands to push herself up from a seated position. This occurred approximately 2 days ago and she reports having left wrist pain since.
There is no swelling or bruising noted. She has full range of motion to her hand and wrist. Extremity is neurovascularly intact. X-ray reviewed, no evidence of acute fracture noted. Will treat as a sprain strain. Splint was offered but declined
by patient. She will continue to ice, take ibuprofen as needed, and follow-up with her family doctor.
ED Attending Note
-
Portions of this chart may have been created with voice recognition software.� Occasional wrong word or��sound alike� substitutions may have occurred due to the inherent limitations of voice recognition software.
Discharge Plan
Departure
Patient Disposition: Home (Routine Discharge)
Date of Disposition: 04/14/25
Time of Disposition: 22:00
Patient with high blood pressure during this ER visit?: No
Condition: Good
Covid-19: Not Applicable
Discharge Problem:
Sprain of wrist
Instructions: Ibuprofen, Using Cold for Pain, Wrist Sprain ED
Prescriptions:
No Action
cyanocobalamin (vitamin B-12) 100 MCG tablet
1,000 mcg PO DAILY
cholecalciferol (vitamin D3) 1,000 UNITS tablet
2,000 units PO DAILY
Probiotic (with Vitamin D3) 1 EACH tablet,chewable
1 ea PO DAILY
rosuvastatin 20 MG tablet
20 mg PO QPM Qty: 60 0RF
omeprazole 20 mg capsule,delayed release(DR/EC)
20 mg PO DAILY
clopidogrel 75 MG tablet
75 mg PO DAILY
amitriptyline 10 mg Tablet
10 mg PO HS Qty: 10 0RF
prednisone 10 mg tablet
30 mg PO DAILY Qty: 30 0RF
Rx Instructions:
30mg X2 days then 20mg X 3days then 10 mg
cefuroxime axetil 500 mg tablet
500 mg PO BID Qty: 9 0RF
cefdinir 300 mg capsule
300 mg PO BID 10 Days Qty: 20 0RF
amoxicillin-pot clavulanate 875-125 mg tablet
1 tab PO Q12H Qty: 14 0RF
phenazopyridine [Pyridium] 200 mg tablet
200 mg PO TID PRN (Reason: Pain) Qty: 6 0RF
cefdinir 300 mg capsule
300 mg PO BID Qty: 14 0RF
Activity Restrictions/Additional Instructions:
Follow-up with your family doctor.
Interventions
Interventions:
*Risk Screen - Suicide Last Done: 04/14/25 21:17
*Neglect/Abuse Screening Last Done: 04/14/25 21:17
*ED COVID-19 Vaccine History Last Done: 04/14/25 21:57
*ED Influenza Vaccine History Last Done: 04/14/25 21:57
[facility] Fall Risk Assessment Tool Last Done: 04/14/25 21:57
ED-Musculoskeletal Assessment Last Done: 04/14/25 21:58
Discharge Date and Time
Print Language: NEPALESE
== END 2025-04-14 22:08 | disposition home or self-care (01) ==
LOC: EMR 21:07
PROVIDERS: EMERGENCY PHYSICIAN Emergency Medicine; FAMILY PHYSICIAN Physician Assistant
DX: S63.502A Unspecified sprain of left wrist, initial encounter (principal); X58.XXXA Exposure to other specified factors, initial encounter; E78.00 Pure hypercholesterolemia, unspecified; K21.9 Gastro-esophageal reflux disease without esophagitis; Z79.02 Long term (current) use of antithrombotics/antiplatelets; Z86.73 Personal history of transient ischemic attack (TIA), and cerebral infarction without residual deficits; Z86.718 Personal history of other venous thrombosis and embolism
CPT/HCPCS: 99283; 73110